=== PATIENT | male | born 1970 | race Caucasian/White ===

== ENCOUNTER 2019-01-27 20:57 | Emergency (ER) | payer SELFPAY ==
[2019-01-27 21:03] VITALS: BP 156/81; PULSE 86; RESP 20; TEMP 36.3; O2SAT 97
--- NOTE | 2019-01-27 21:14 | ED.GENADUL_ITS ---
Discharge Plan Disposition Patient Disposition: HOME Condition: Good Discharge Details Chief Complaint: FlankPain Clinical Impression: Left flank pain Primary Care Provider: None,None ED Provider: Cortez James Meds and New Rx's Prescriptions: New oxycodone 5 mg tablet 5 mg PO Q6H PRN (Reason: pain) Qty: 10 RF: 0 tamsulosin [Flomax] 0.4 mg capsule 0.4 mg PO DAILY Qty: 14 RF: 0 Continued ibuprofen 600 mg Tablet 600 mg PO QID PRNRF: 0 Discharge Instructions Instructions: Renal Colic (ED) Additional Instructions: Drink plenty of fluids. Use Tylenol or Motrin in alternating fashion to control pain. If necessary take oxycodone for pain. Flomax as directed. Strain your urine. Contact Dr. Gaviria for follow-up. Return to ED for uncontrolled pain, vomiting, fever. Referrals: Jh Gaviria MD [ [facility] STAFF PHYSICIAN] - Discharge Data Discharge Date/Time-TO BE ENTERED AT DEPARTURE: 01/27/19 23:58 Medical Decision Making Patient presenting with left flank pain likely recurrent kidney stone. He is not febrile. He is very uncomfortable. IV established and fluids and medications ordered. Laboratory studies and urine ordered. Will avoid imaging unless significant lab abnormalities or unable to control pain. First round of medications including Toradol and morphine with some relief. Second dose of morphine with good relief. CBC and chemistries are fine. Urinalysis negative for blood. Still likely to be kidney stone but did offer to do stone study. Unfortunately, patient does not have health insurance. He is still paying his hospital bill from last year when he had kidney stone. He'd really like to avoid repeat scan due to financial reasons. Since his pain has come under control after the second dose of morphine this is probably reasonable to see how he does. Flomax has been given. Dose of oxycodone given. Patient will go home with an oxycodone for use overnight. He will try to use ibuprofen and Tylenol in alternating fashion but is given a prescription for oxycodone if needed. Informed consent and state information sheet done. Review of the [place] prescription monitoring site shows no previous prescriptions in the last year. We will also start Flomax. We will try to get him into Dr. Gaviria this week. Return to ED for fever, worsening pain, vomiting. Lab Data Lab results reviewed: Yes I reviewed the patient's lab results. HPI General Mode of arrival: ambulatory . Date/Time Provider Initiated Documentation: 01/27/19 21:09 . Limitations to Documentation: no limitations . Information obtained by: patient, RN notes reviewed and old records reviewed . HPI Narrative: Patient presents to ED with left flank pain radiating into the left groin. Patient has previous history of kidney stone on the left side. Pain started last night but has been worse today. He denies fever or vomiting. He has some mild nausea. He has a sense of urgency but has not noticed dysuria or hematuria. He passed the kidney stone last year on his own after a couple of days. Came in tonight because he is unable to bear the pain any longer. Related Data Home Medications Medication Instructions Recorded Confirmed ibuprofen 600 mg PO QID PRN 01/27/19 01/27/19 oxycodone 5 mg PO Q6H PRN #10 tab 01/27/19 tamsulosin [Flomax] 0.4 mg PO DAILY #14 cap 01/27/19 Previous Rx's Medication Instructions Recorded oxycodone 5 mg PO Q6H PRN #10 tab 01/27/19 tamsulosin [Flomax] 0.4 mg PO DAILY #14 cap 01/27/19 Allergies Allergy/AdvReac Type Severity Reaction Status Date / Time No Known Allergies Allergy Unverified 01/27/19 21:05 General Stated Complaint: FlankPain LINDA: 3 Review of Systems Review of Systems As documented in HPI otherwise negative as below. Const: no fever, chills, weakness Resp: no cough, SOB, pleuritic pain CV: no CP, diaphoresis, edema, syncope GI: nausea; no abdominal pain, vomiting, diarrhea Neuro: no headache, numbness, focal weakness, confusion [facility] Medical History Kidney calculi (Chronic) Social History Smoking/Tobacco Use Status: Current every day Alcohol Intake: current Alcohol Intake frequency: holidays/special occasions only Alcohol type: beer Drug use: Socially Substance use type: marijuana Do you feel safe at home: Yes Do you feel safe in your relationship?: Yes Exam Narrative Exam Narrative: Vitals: Afebrile with elevated BP likely due to pain. Const: WDWN male in distress from pain. HEENT: NC/AT. Normal facial exam. Eyes: Normal conjunctiva and sclera. Neck: Supple. Trachea midline. Lungs: Normal respiratory effort. Lungs are clear. Cor: RRR without murmur/gallop. GI: Soft. NT/ND. No guarding or rebound. Back: Left CVAT. Neuro: A+O x 3. CN grossly in tact. Good strength and no focal deficit. Ext: No C/C/E. No deformity or tenderness. Skin: Warm and dry without rash. Course Vital Signs Temperature 97.3 F L 01/27/19 21:03 Pulse 86 01/27/19 21:03 Respiratory Rate 20 01/27/19 21:03 Blood Pressure 156/81 H 01/27/19 21:03 Pulse Oximetry 97 01/27/19 21:03 Temperature 97.3 F L 01/27/19 21:03 Temperature Source Skin 01/27/19 21:03 Pulse 86 01/27/19 21:03 Respiratory Rate 20 01/27/19 21:03 Respiratory Effort Non-Labored 01/27/19 21:06 Blood Pressure 156/81 H 01/27/19 21:03 Blood Pressure Position Supine 01/27/19 21:03 Pulse Oximetry 97 01/27/19 21:03 Oxygen Delivery Method Room Air 01/27/19 21:03 Oxygen Flow Rate 0 01/27/19 21:03 Pain Level 10 01/27/19 21:03 Comment 01/27/19 21:03
[2019-01-27] MEDS: Lactated Ringers 1,000 ML 200 ML IV (21:23)
[2019-01-27] MEDS: Tamsulosin 0.4 MG CAPCR PO (21:23)
[2019-01-27] MEDS: Ketorolac 30 MG/ML VIAL IVP (21:23)
[2019-01-27 21:25] LABS: Abs Immature Grans 0.01 k/cumm (0.0-0.09); Absolute Basophil Count 0.04 k/cumm (0.0-0.2); Absolute Eosinophil Count 0.24 k/cumm (0.0-0.7); Absolute Lymphocyte Count 3.02 k/cumm (1.2-3.4); Absolute Monocyte Count 0.99 k/cumm (0.11-0.7); Absolute Neutrophil Count 5.85 k/cumm (1.2-6.7); Basophils % 0.4; Eosinophils % 2.4; HGB 15.7 g/dL (13.5-17.5); Immature Grans % 0.1; Lymphocytes % 29.8; Mean Corp. HGB Concentration 35.7 g/dL (32.0-36.0); Mean Corpuscular Hemoglobin 30.9 pg (27.0-33.0); Mean Corpuscular Volume 86.6 fL (80-95); Mean Platelet Volume 9.7 fL (8.0-11.0); Monocytes % 9.8; Neutrophils % 57.5; Platelet Count 233 x1000/uL (130-400); RBC 5.08 m/cumm (4.50-6.00); RBC Distribution Width 13.7 % (11.8-14.1); White Blood Cell Count 10.15 k/cumm (4.4-10.8)
[2019-01-27 21:33] LABS: BUN 14 mg/dL (7-18); Calcium 9.5 mg/dL (8.5-10.1); Chloride 102 mmol/L (98-107); Glucose 102 mg/dL (70-100); Potassium 4.2 mmol/L (3.5-5.1); Sodium 138 mmol/L (136-145)
[2019-01-27] MEDS: MORPHine 10 MG/ML VIAL 5 MG IVP ×2 (21:41→22:25)
[2019-01-27 22:08] LABS: Bilirubin Negative (Negative); Blood Trace-intact (Negative); Clarity Clear (Clear); Glucose Negative (Negative); Ketones Negative (Negative); Leukocyte Esterase Negative (Negative); Nitrite Negative (Negative); Specific Gravity 1.015 (1.005-1.025); Urobilinogen 0.2 EU/dL (Up TO 0.2); pH 8.5 (5-8)
[2019-01-27 22:16] LABS: Bacteria Negative HPF (Negative); C & S Indicated? No; Casts Negative LPF (Negative); Crystals Negative HPF (Negative); Epithelial Cells Negative HPF (Negative); Mucus Negative (Negative); RBC 0-2 (0-2); WBC Negative HPF (0-5)
[2019-01-27 22:27] VITALS: BP 111/63; PULSE 63; RESP 18; TEMP 37; O2SAT 97
[2019-01-27] MEDS: oxyCODONE 5 MG TAB PO ×2 (23:18→23:55)
[2019-01-27 23:54] VITALS: BP 121/80; PULSE 65; RESP 16; TEMP 36.7; O2SAT 96
--- NOTE | 2019-01-28 00:18 | NUR.NOTE ---
Nursing Note: faxed to [facility] on 01/28/19
== END 2019-01-27 23:58 | disposition home or self-care (01) ==
PROVIDERS: Emergency Provider Emergency Medicine
DX: R10.9 Unspecified abdominal pain (principal)
CPT/HCPCS: 36415; 80048; 96361; 96374; 96375; 96376; 99284; 81003; 81015; 85025; J1885; J2270

== ENCOUNTER 2024-06-23 13:29 | Emergency (ER) | payer OTHER, SELFPAY ==
[2024-06-23 13:32] VITALS: BP 136/95; PULSE 80; RESP 18; TEMP 36.5; O2SAT 96
[2024-06-23 15:02] VITALS: BP 150/75; PULSE 71; O2SAT 98
[2024-06-23] MEDS: oxyCODONE 10 MG TAB PO (15:02)
--- NOTE | 2024-06-23 15:06 | DI.RAD_ITS ---
Exam(s) XR HEEL LT OS CALCIS EXAM: XR HEEL LT OS CALCIS CLINICAL HISTORY: pain in heel. TECHNIQUE: 2D digital imaging was performed. COMPARISON: No exams were available for comparison FINDINGS: Two views-axial and lateral views. There is no oblique mildly comminuted and mildly displaced fracture of the calcaneus. Fracture line appears to extend towards the subtalar joint. Fracture line extends to involve both superior and inf erior cortices of the main part of the calcaneus. There is no obvious fracture extension to the calcaneocuboid joint. IMPRESSION: Calcaneus fractures above. If clinically indicated further study with CT scan can be performed. DATA REPOSITORY: RADIATION DOSE DELIVERED:
--- NOTE | 2024-06-23 15:06 | DI.RAD_ITS ---
Exam(s) XR FOOT LT COMPLETE EXAM: XR FOOT LT COMPLETE CLINICAL HISTORY: heel and foot pain. TECHNIQUE: 2D digital imaging was performed. COMPARISON: CR XR HEEL LT OS CALCIS from 06/23/2024 FINDINGS: 3 views There is a displaced oblique fracture in the calcaneus. This involves prominent body of the calcaneu s and may also violate the subtalar joint space. The calcaneocuboid articulation appears intact as do the other articulations of the foot including th e Lisfranc joint. Incidentally noted is a benign sclerotic bone island in the distal aspect of the d istal phalanx of the great toe and there is also an element of abnormal should foreshortening of the proximal phalanx of the great toe. There are no metatarsal fractures evident. IMPRESSION: Oblique calcaneus fracture with some displacement. DATA REPOSITORY: RADIATION DOSE DELIVERED:
--- NOTE | 2024-06-23 15:06 | DI.RAD_ITS ---
Exam(s) XR TIB/FIB LT EXAM: XR TIB/FIB LT CLINICAL HISTORY: pain post fall. TECHNIQUE: 2D digital imaging was performed. COMPARISON: No exams were available for comparison FINDINGS: Two views No evidence of acute fracture in the tibia and fibula. However, please note that the medial malleolu s of the distal tibia is not included in the field of view. In addition, the lateral rim of the late ral tibial plateau is also not included in the field of view. IMPRESSION: No fracture seen but with limitations as above. Therefore if there is any clinical consideration for a Segond-type fracture of the tibial plateau or of medial malleolus fracture then additional knee/an kle images would be required. DATA REPOSITORY: RADIATION DOSE DELIVERED:
--- NOTE | 2024-06-23 15:15 | DI.CT_ITS ---
Exam(s) CT LOWER EXTREMITY LT WO EXAM: CT LOWER EXTREMITY LT WO CLINICAL HISTORY: heel fx eval. TECHNIQUE: Imaging Protocol: Axial computed tomography images with coronal and sagittal reformatted images were created and reviewed. CONTRAST MATERIAL: Intravenous: None COMPARISON: CR XR HEEL LT OS CALCIS from 06/23/2024 FINDINGS: OSSEOUS: There is an acute comminuted and moderately displaced fracture of the calcaneus. Fracture lines extending from superior to inferior cortices as well as across the base of the sustent acular talus. The fracture lines violate the subtalar joint at multiple levels. There is some heigh t loss at the mid aspect of of the calcaneus. Posteriorly the fracture extends to a level of 1.5 cm anterior to the posterior cortex of the calcaneus. Fracture lines violate the superior cortical surf [place] of the calcaneus both anterior to and posterior to the sustentacular talus. The calcaneocuboid j oint appears intact. There is no fracture within the talus nor within the cuboid bone. There is no evidence of fracture of the talus. Talar dome appears intact. Os trigonum is noted. Th ere are no metatarsal fractures. Lisfranc joint unremarkable. Malleoli unremarkable. IMPRESSION: Comminuted moderately displaced and impacted fracture of the calcaneus. There are multiple fracture lines. No radiopaque foreign bodies evident. RADIATION DOSE DELIVERED: 179.8mGy.cm Total DLP DATA REPOSITORY: All CT scans at this facility are submitted to the National Radiology Data Registry (NRDR) Dose Index Registry (DIR) with the [employer] (ACR). RADIATION OPTIMIZATION: All CT scans at this facility use at least one of these dose optimization te chniques: automated exposure control; mA and/or kV adjustment per patient size (includes targeted exa ms where dose is matched to clinical indication); or iterative reconstruction.
--- NOTE | 2024-06-23 15:40 | ED.GENADUL_ITS ---
Discharge Plan Disposition Patient Disposition: Home Condition: Stable Discharge Details Clinical Impression: Closed fracture of heel bone Primary Care Provider: None,None ED Provider: Juana Sykes Home Meds and New Rx's Prescriptions: New oxycodone 5 mg capsule 5 mg PO Q6H PRNQty: 12 0RF Discharge Instructions Instructions: Foot Fracture (DC), Cast Care ED Additional Instructions: Keep cast clean and dry, elevate, use your crutches Take ibuprofen 600 mg every 8 hours with food, take Tylenol 650 every 6 hours for pain, take oxycodone for pain uncontrolled with ibuprofen and Tylenol Should you develop dramatic change in pain, strength or sensation changes, please return for reassessment It sounds like [facility] will call you to schedule surgery Referrals: Zhang Marcus MD [ [facility] STAFF PHYSICIAN] - HPI General Date/Time Provider Initiated Documentation: 06/23/24 13:30 . HPI Narrative: This 53-year-old male presents with report of injury to left heel. Fell from 12 foot ladder denies any additional injuries. Unable to ambulate since the event occurred. Denies history of coagulopathy. Related Data Home Medications ?Medication ?Instructions ?Recorded ?Confirmed oxycodone 5 mg capsule 5 mg PO Q6H PRN #12 caps 06/23/24 Previous Rx's ?Medication ?Instructions ?Recorded oxycodone 5 mg capsule 5 mg PO Q6H PRN #12 caps 06/23/24 Allergies Allergy/AdvReac Type Severity Reaction Status Date / Time No Known Allergies Allergy Unverified 06/23/24 13:37 General Stated Complaint: Orthopedic LINDA: 4 Exam Narrative Exam Narrative: Alert and oriented 53-year-old male in no acute distress, GCS 15, no neck tenderness or lumbar spine tenderness, no abdominal tenderness, no visible signs of head trauma, left heel and foot swollen, distal pulses intact, sensation intact distally, no tenderness to left hip left knee or distal foot. Course Vital Signs Vital signs: Vital Signs Temperature 36.5 C 06/23/24 13:32 Pulse 80 06/23/24 13:32 Respiratory Rate 18 06/23/24 13:32 Blood Pressure 136/95 H 06/23/24 13:32 Pulse Oximetry 96 06/23/24 13:32 Temperature 36.5 C 06/23/24 13:32 Temperature Source Oral 06/23/24 13:32 Pulse 71 06/23/24 15:02 Respiratory Rate 18 06/23/24 13:32 Blood Pressure 150/75 H 06/23/24 15:02 Blood Pressure Mean 100 06/23/24 15:02 Blood Pressure Position Sitting 06/23/24 15:02 Pulse Oximetry 98 06/23/24 15:02 Oxygen Delivery Method Room Air 06/23/24 15:02 Oxygen Flow Rate 0 06/23/24 15:02 Pain Level 8 06/23/24 15:02 Medical Decision Making 53-year-old male otherwise healthy presenting with left heel pain after significant fall. Head to toe exam performed without any additional visible evidence of trauma aside from heel and foot. Os calcis and foot per radiology interpretation review shows os calcis fracture. Dr. marcus was consulted and actually placed a Plata splint on the patient and will contact [facility] to establish orthopedic evaluation. Patient will likely need surgery. CT has been ordered and will be transferred to [facility]. Patient remains neurovascularly intact. Oxycodone with risk of addiction reviewed. Quality:SDOH Health Related Social Needs: No Data to Display PFSH All Active Problems (Updated 06/23/24 @ 15:41 by AUGIE Soto) Closed fracture of heel bone (Acute) Medical History (Updated 06/23/24 @ 15:41 by AUGIE Soto) Kidney calculi Social History Smoking/Tobacco Use Status: Current every day Tobacco Type: cigarettes Years smoked: 10 Tobacco: How many years used: 25 Smoking risk assessment performed?: Yes Alcohol Intake: former Drug use: Socially Substance use type: marijuana Do you feel safe at home: Yes Do you feel safe in your relationship?: Yes
[2024-06-23 16:13] VITALS: BP 140/101; PULSE 83; RESP 12; O2SAT 98
--- NOTE | 2024-06-23 16:32 | W.ORTHOCONSU ---
Date of service: 06/23/24 Time of Service: 15:45 History of Present Illness History of Present Illness Chief Complaint: Left Heel Pain Narrative: Carlos is a 53-year-old active male who fell off a ladder about 12 feet. He landed directly on his heel on the left side. He had immediate pain in the left foot. He had no pain in the leg, knee, thigh, hip, or back. He rode for 2 hours with the leg elevated and presented to the ED here locally. He denies any numbness or tingling. He denies any significant pain if he does not try to put weight on it. He denies any previous issues with this left foot. He reports no significant medical issues. Consults Consult date: 06/23/24 Requesting physician: Juana Sykes Consult Reason Left intra-articular calcaneus fracture Assessment and Plan Assessment and plan (1) Closed fracture of left calcaneus: Status: Acute Assessment and plan: Carlos is a 53-year-old male who suffered a fall from about 12 feet landing on his left heel and suffering a comminuted, displaced calcaneus fracture. Given his young age and active lifestyle and the characters of the fracture this does need surgical fixation. However, this is a complex fracture needing specialized surgical care. At this point is imperative that he works on controlling swelling. Currently is very minimal. I placed him into a bulky Plata splint by wrapping the foot and heel with Perry cotton, compressed with an Alexander wrap, and a posterior slab placed on top of this. He is to keep this elevated all times. I will personally reach out to the trauma team at [facility] to discuss getting him seen and treated for his left calcaneus fracture. He should be nonweightbearing. This should be elevated all times. Pain medication as needed. If he has any worsening of symptoms or uncontrollable pain, he needs to return the emergency department. Review of Systems All systems reviewed & are unremarkable except as noted in HPI and below PFSH All Active Problems (Updated 06/23/24 @ 16:35 by Zhang Hawkins MD) Closed fracture of left calcaneus (Acute) Medical History (Updated 06/23/24 @ 16:35 by Zhang Hawkins MD) Kidney calculi Social History Smoking/Tobacco Use Status: Current every day Tobacco Type: cigarettes Years smoked: 10 Tobacco: How many years used: 25 Smoking risk assessment performed?: Yes Alcohol Intake: former Drug use: Socially Substance use type: marijuana Do you feel safe at home: Yes Do you feel safe in your relationship?: Yes Exam Narrative Exam Narrative: Resting in the supine position in the hospital stretcher. No acute distress. Alert and orient x 3 peer Brief evaluation of the left lower extremity shows mild swelling to the hindfoot of the left foot. There is no tenting of skin. There is no threatened skin. Skin is not terribly swollen and mobile on top of the calcaneus. There is pain to palpation. Sensation intact to light touch of the deep and superficial peroneal nerve and tibial nerve. Palpable DP pulse. No pain with palpation of the tibia, knee, femur/thigh. No pain with gentle internal/external rotation of the left leg. No pain with gentle pelvic compression. Results Last Vital Signs Temp 36.5 C 06/23/24 13:32 Pulse 83 06/23/24 16:13 Resp 12 06/23/24 16:13 BP 140/101 H 06/23/24 16:13 Pulse Ox 98 06/23/24 16:13 Imaging Imaging Studies: X-ray of the left heel and tib-fib demonstrates a comminuted, displaced, intra-articular calcaneus fracture. There is no other apparent fractures outside of the calcaneus. CT scan of the left lower extremity demonstrates an intra-articular and displaced fracture of the left calcaneus. There is some incongruity of the subtalar joint.
== END 2024-06-23 16:13 | disposition home or self-care (01) ==
LOC: ER 16:17
PROVIDERS: Emergency Provider Physician Assistant
DX: S92.012A Displaced fracture of body of left calcaneus, initial encounter for closed fracture (principal); F17.210 Nicotine dependence, cigarettes, uncomplicated; W11.XXXA Fall on and from ladder, initial encounter
CPT/HCPCS: 29515; 99284; 73590; 73630; 73650; 73700